=== PATIENT | female | born 1960 | race Caucasian/White ===

== ENCOUNTER 2022-02-20 13:08 | Emergency (ER) | payer BC ==
[2022-02-20] MEDS ORDERED: Sodium Chloride 0.9% 1,000 ML IV SCH (13:15)
[2022-02-20] MEDS ORDERED: Nitroglycerin/D5W 25 MG/250 ML BOTTLE IV SCH (13:15)
== END 2022-02-20 15:05 | disposition home or self-care (01) ==
LOC: JD.ED 13:08
DX: R07.89 Other chest pain (principal); K44.9 Diaphragmatic hernia without obstruction or gangrene; K21.9 Gastro-esophageal reflux disease without esophagitis; E03.9 Hypothyroidism, unspecified; Z79.899 Other long term (current) drug therapy
CPT/HCPCS: 36415; 71045; 80053; 82553; 83735; 83880; 84484; 85025; 85379; 85610; 85730; 86140; 93005; 96365; 96366; 99285; J3490; J7030; 93010; 99284